=== PATIENT | male | born 1980 | race Caucasian/White ===

== ENCOUNTER 2018-08-05 08:27 | Emergency (ER) | payer SELFPAY ==
[2018-08-05 08:38] VITALS: BP 127/78; PULSE 77; RESP 18; TEMP 37; O2SAT 95; BMI 29.5
--- NOTE | 2018-08-05 08:54 | ED.UPPEXIN ---
HPI - Extremity Injury (Upper) General Chief Complaint: Extremity Injury, Upper Stated Complaint: ARM PAIN BILAT Time Seen by Provider: 08/05/18 08:54 Source: patient Mode of arrival: ambulatory Limitations: no limitations History of Present Illness HPI narrative: Patient complains of bilateral upper extremity pain, which is keeping him from sleeping at night. He states he has been diagnosed with bilateral carpal tunnel syndrome, and that he is scheduled to have the 1st of his surgeries on August 27. He states he is here doing contract work from out of town, and that he has been working 7 days a week and long hours each day. 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 He states that at night, he gets a throbbing pain that keeps him from sleeping, and that he has not been able to sleep well the last few days. He states he is mainly here to see if he can get something to help him with the pain at least at night, so that he can make it through the rest of his time here before going home. Patient denies new injuries or any other complaints at this time. Severity scale (1-10): 5 Relieving factors: none Exacerbating factors: movement of extremity Related Data Previous Rx's Medication Instructions Recorded hydrocodone-acetaminophen 1 tab PO Q4-6H PRN #14 tab 08/05/18 prednisone 40 mg PO DAILY #5 tab 08/05/18 Allergies Allergy/AdvReac Type Severity Reaction Status Date / Time amoxicillin Allergy Verified 08/05/18 08:46 tramadol [From Ultram] Allergy Verified 08/05/18 08:46 Review of Systems Review of Systems All systems reviewed & are unremarkable except as noted in HPI and below Constitutional Denies chills, Denies fever(s), Denies lethargy and Denies weakness Eyes Denies change in vision, Denies eye discharge, Denies irritation and Denies loss of vision ENT Ears, Nose, Mouth, and Throat: Denies change in voice, Denies neck pain and Denies sore throat Cardiovascular Denies chest pain, Denies irregular heart rhythm, Denies lightheadedness, Denies palpitations, Denies dyspnea, Denies dyspnea on exertion and Denies orthopnea Respiratory Denies cough, Denies dyspnea, Denies dyspnea on exertion and Denies wheezing Gastrointestinal Gastrointestinal: Denies abdominal pain, Denies change in bowel habits, Denies diarrhea, Denies nausea and Denies vomiting Genitourinary Denies hematuria, Denies flank pain, Denies urinary incontinence and Denies urinary urgency Musculoskeletal Denies neck pain Comments: Bilateral wrist pain Integumentary/Breasts Denies pruritus, Denies erythema, Denies rash and Denies wounds Neurologic Denies confusion, Denies loss of vision and Denies weakness Psychiatric Denies anxiety, Denies confusion, Denies depression, Denies homicidal ideation and Denies suicidal ideation Endocrine Denies palpitations Hematologic/Lymphatic Denies easy bruising Allergic/Immunologic Denies wheezing [facility] Medical History Carpal tunnel syndrome (Acute) Surgical History No pertinent past surgical history (Acute) Social History Smoking Status: Never smoker Exam Initial Vital Signs Initial Vital Signs: Vital Signs Temperature 98.6 F 08/05/18 08:38 Pulse Rate 77 08/05/18 08:38 Respiratory Rate 18 08/05/18 08:38 Blood Pressure 127/78 08/05/18 08:38 Pulse Oximetry 95 08/05/18 08:38 Const General: cooperative and well developed Nutritional Appearance: well nourished Orientation: alert, awake, oriented x3 and not confused [facility] Head: normocephalic and atraumatic Ears: external ears normal Nose: external nose normal and No nasal discharge Face and sinus: face symmetric and No dry mucous membranes Mouth: oral mucosae normal and moist mucous membranes Teeth and gingiva: dentition normal Eyes General: appearance normal, both eyes and all related structures Eyelids: eyelids normal Conjunctivae: conjunctivae normal Sclera: sclerae normal Pupils: PERRL EOM: EOM intact bilaterally Neck Neck: normal visual inspection, trachea midline, No lymphadenopathy, No midline deformity and No JVD Lymphatic: No lymphedema Chest Chest: normal inspection of the chest Resp Effort & Inspection: normal respiratory effort, able to speak in complete sentences, no respiratory distress and no use of accessory muscles Auscultation: clear to auscultation bilaterally, no rales, no rhonchi and no wheezes Cardio Rate: regular rate Rhythm: regular rhythm Heart Sounds: no click, no gallops, no murmurs and no rubs Pulses: normal peripheral pulses Back/Spine/Pelvis Back: No CVA tenderness Cervical Spine: cervical ROM normal and No pain with cervical ROM Thoracic/Lumbar Spine: thoracic and lumbar spine normal to inspection Skin General: no rashes or lesions noted, No jaundice and No petechiae Neuro General: alert, oriented x3, gait normal and no focal motor deficits Speech: speech normal Extrem Other: Patient has decreased range of motion bilateral wrists and mild tenderness. He is neurovascularly intact. No deformity or evidence of acute trauma. Psych Appearance: well kempt Mental Status: mental status grossly normal Attitude: cooperative Thought Content: normal and suicidality Judgment: judgment good Course Course Narrative: I discussed with the patient that I would go ahead and prescribe him some medication for symptomatic relief, as well as write him a light duty note for work. If patient continues to have significant problems, he may need to leave early and go back home and to see his specialist. We have discussed home management of pain, as well as the usual indications for return. Vital Signs - 8 hr 08/05/18 08:38 Temperature 98.6 F Pulse Rate 77 Respiratory Rate 18 Blood Pressure 127/78 Pulse Oximetry 95 Discharge Plan Departure Patient Disposition: Home Clinical Impression: Acute carpal tunnel syndrome of left wrist, Acute carpal tunnel syndrome of right wrist Instructions: DI for Carpal Tunnel Syndrome Prescriptions: New prednisone 20 mg tablet 40 mg PO DAILY Qty: 5 RF: 0 hydrocodone-acetaminophen 10-325 mg tablet 1 tab PO Q4-6H PRN (Reason: pain) Qty: 14 RF: 0 Stand Alone Forms: Work/School Restrictions
== END 2018-08-05 09:30 | disposition home or self-care (01) ==
PROVIDERS: Emergency Provider Emergency Medicine
DX: G56.02 Carpal tunnel syndrome, left upper limb (principal); G56.01 Carpal tunnel syndrome, right upper limb
CPT/HCPCS: 99282